=== PATIENT | male | born 1970 | race African-American/Black ===

== ENCOUNTER 2020-02-21 05:24 | Emergency (ER) | payer OTHER ==
[~2020-02-21] VITALS: Ht 182.9 cm; Wt 97.0 kg
[2020-02-21] MEDS ORDERED: IV NORMAL SALINE 1000ML BAG 1,000 ML IV ONE (05:30)
--- NOTE | 2020-02-21 05:46 | PHYS DOC ---
Past Medical History Past Medical History: No Pertinent History Additional Past Surgical Histo: R knee Smoking Status: Never Smoker Alcohol Use: None Drug Use: None General Adult EDM: Chief Complaint: SYNCOPE HPI: HPI: Patient is a 49 year old male presents via EMS with report of syncopal episode upon arrival at work this morning. Reports he has been dealing with some racist at his place of employment. Reports recently received several text messages of inappropriate content. Patient tried to let things go but texts continued. Reports they have continued to treat him without respect. Reports he has gone through the correct channels to notify HR and his management. Today he tried to go talk to these individuals but he started to feel unwell and anxious. Reports he thinks the stress took over and caused him to pass out. Denies headache or neck pain. Denies use of blood thinners. Denies chest pain. Denies nausea or vomiting. Review of Systems: Review of Systems: Constitutional: Denies fever or chills Eyes: Denies redness or eye pain HENT: Denies nasal congestion or sore throat Respiratory: Denies cough or shortness of breath Cardiovascular: Denies chest pain or palpitations GI: Denies abdominal pain, nausea, or vomiting : Denies dysuria or hematuria Musculoskeletal: Denies back pain or joint pain Integument: Denies rash or skin lesions Neurologic: Denies headache, focal weakness or sensory changes; reports syncopal episode Complete systems were reviewed and found to be within normal limits, except as documented in this note. Current Medications: Current Medications Medications (Trade) Dose Ordered Sig/Davi Start Time Stop Time Status Last Admin Dose Admin Sodium Chloride 1,000 ml @ 1,000 mls/hr 1X ONCE 02/21/20 05:30 02/21/20 06:29 Allergies: Allergies: Allergies Coded Allergies Type Severity Reaction Last Updated Verified Unable to Assess 02/21/20 No Physical Exam: PE: Constitutional: Well developed, well nourished, tearful, non-toxic appearance HENT: Normocephalic, atraumatic Eyes: PERRL, EOMI, conjunctiva normal, no discharge, no nystagmus Neck: Normal range of motion, no tenderness, supple Lungs & Thorax: No respiratory distress, equal chest rise and fall Abdomen: Soft, no tenderness Skin: Warm, dry, no erythema, no rash Extremities: No tenderness, ROM intact, no edema Neurologic: Alert and oriented X 3, normal motor function, normal sensory function, no focal deficits noted Psychologic: Affect anxious, judgment normal EKG: EKG: @0539 NSR at 75bpm, NO ST elevation, QRS 92ms, QT/QTc 370/416ms Radiology/Procedures: Radiology/Procedures: PROCEDURE: CT HEAD WO CONTRAST EXAM: CT Head without IV contrast INDICATION: Reason: syncope / Spl. Instructions: / History: TECHNIQUE: Multi-detector row CT images were obtained of the head without the use of IV contrast. All CT scans performed at this facility utilize dose optimization techniques as appropriate to the exam, including the following: Automated exposure control and adjustment of the mA and/or KV according to patient size (this includes techniques or standardized protocols for targeted exams where dose is indication/reason for exam). COMPARISON: None FINDINGS: BRAIN PARENCHYMA: No evidence of acute intraparenchymal hemorrhage or infarct. No abnormal parenchymal density or mass. VENTRICLES & EXTRA-AXIAL SPACES: Ventricles are within normal limits. Basilar cisterns are patent. No pathologic extra-axial fluid collection or mass. ORBITS: Orbital contents are unremarkable. SINUSES: Visualized paranasal sinuses and mastoid air cells are clear. OSSEOUS & SOFT TISSUES: Calvarium and skull base are intact. IMPRESSION: Normal CT of the head without contrast. Electronically signed by: Luiz Junior MD (02/21/2020 6:06 AM) [facility] [place] Course & Med Decision Making: Course & Med Decision Making Pertinent Labs and Imaging studies reviewed. (See chart for details) Patient presents with report of syncopal episode while at work. Appears likely secondary to increased stresses at work. EKG stable. Labs obtained and posted to chart. CT head without acute process. Anxiety addressed. Orthostatic VS stable. Patient stable for discharge with outpatient follow-up with PCP. Discussed findings and plan with patient and family, who acknowledge understanding and agreement. [place] Disclaimer: [place] Disclaimer: This electronic medical record was generated, in whole or in part, using a voice recognition dictation system. Departure Departure Impression: Primary Impression: Syncope Qualified Codes: R55 - Syncope and collapse Additional Impression: Anxiety Disposition: 01 HOME, SELF-CARE Condition: STABLE Patient Instructions: Anxiety and Panic Attacks, [id number], Stress Management, Syncope, [id number] Scripts Lorazepam (ATIVAN) 0.5 Mg Tablet 0.5 MG PO TID PRN for ANXIETY, #10 TAB Prov: ANGELO HASSAN DO 02/21/20 Justicifation of Admission Dx: Justifications for Admission: Justification of Admission Dx: N/A ANGELO HASSAN DO Feb 21, 2020 05:46
--- NOTE | 2020-02-21 05:47 | EKG ---
[facility] [address] [place] [address] Test Date: 2020-02-21 Test Time: 05:39:11 Pat Name: DEIRDRE SANFORD Department: Room: Gender: M Director Of Dietary: : 1970 Requested By: ANGELO HASSAN Order Number: [id number] Reading MD: Measurements Intervals [place] Rate: 75 P: 31 TX: 182 QRS: 8 QRSD: 92 T: 12 QT: 370 QTc: 416 Interpretive Statements SINUS RHYTHM NORMAL ECG RI6.02 No previous ECG available for comparison
[2020-02-21 05:52] LABS: BASO % 1 % (0-3); EOS # 0.1 x10^3/uL (0.0-0.7); EOS % 2 % (0-3); HEMATOCRIT 45.4 % (39.0-53.0); HEMOGLOBIN 15.5 g/dL (13.0-17.5); LYMPH # 1.1 x10^3/uL (1.0-4.8); LYMPH % 21 % (24-48); MEAN CORPUSCULAR HEMOGLOBIN 29 pg (25-35); MEAN CORPUSCULAR HGB CONC 34 g/dL (31-37); MEAN CORPUSCULAR VOLUME 84 fL (79-100); MONO # 0.5 x10^3/uL (0.0-1.1); MONO % 8 % (0-9); NEUT # 3.7 x10^3/uL (1.8-7.7); NEUT % 69 % (31-73); PLATELET COUNT 250 x10^3/uL (140-400); RED BLOOD COUNT 5.39 x10^6/uL (4.30-5.70); RED CELL DISTRIBUTION WIDTH 14.2 % (11.5-14.5); WHITE BLOOD COUNT 5.4 x10^3/uL (4.0-11.0)
[2020-02-21 06:02] LABS: PROTHROMBIN TIME PATIENT 12.5 SEC (11.7-14.0)
[2020-02-21 06:06] LABS: CALCIUM 9.3 mg/dL (8.5-10.1); CREATININE 1.3 mg/dL (0.7-1.3); POTASSIUM 3.5 mmol/L (3.5-5.1)
--- NOTE | 2020-02-21 06:08 | RAD ---
EXAM: CT Head without IV contrast INDICATION: Reason: syncope / Spl. Instructions: / History: TECHNIQUE: Multi-detector row CT images were obtained of the head without the use of IV contrast. All CT scans performed at this facility utilize dose optimization techniques as appropriate to the exam, including the following: Automated exposure control and adjustment of the mA and/or KV according to patient size (this includes techniques or standardized protocols for targeted exams where dose is indication/reason for exam). COMPARISON: None FINDINGS: BRAIN PARENCHYMA: No evidence of acute intraparenchymal hemorrhage or infarct. No abnormal parenchymal density or mass. VENTRICLES & EXTRA-AXIAL SPACES: Ventricles are within normal limits. Basilar cisterns are patent. No pathologic extra-axial fluid collection or mass. ORBITS: Orbital contents are unremarkable. SINUSES: Visualized paranasal sinuses and mastoid air cells are clear. OSSEOUS & SOFT TISSUES: Calvarium and skull base are intact. IMPRESSION: Normal CT of the head without contrast. Electronically signed by: Luiz Junior MD (02/21/2020 6:06 AM) [facility] [place]
[2020-02-21 06:13] LABS: ALBUMIN 4.2 g/dL (3.4-5.0); ALBUMIN/GLOBULIN RATIO 1.1 (1.0-1.7); MAGNESIUM 2.1 mg/dL (1.8-2.4); TOTAL BILIRUBIN 0.5 mg/dL (0.2-1.0); TOTAL PROTEIN 7.9 g/dL (6.4-8.2)
[2020-02-21] MEDS ORDERED: LORA0.5T96 PO (06:46)
[2020-02-21 07:21] LABS: BILIRUBIN,URINE NEGATIVE (NEG); CLARITY,URINE CLEAR; COLOR,URINE YELLOW; NITRITE,URINE NEGATIVE (NEG); PH,URINE 7.5 (<5.0-8.0); PROTEIN,URINE 30 mg/dL (NEG-TRACE); UROBILINOGEN,URINE 0.2 mg/dL (0.2 mg/dL)
[2020-02-21 07:28] LABS: AMPHETAMINE/METHAMPHETAMINE NEG (NEG); BARBITURATES NEG (NEG); BENZODIAZEPINES NEG (NEG); CANNABINOIDS NEG (NEG); COCAINE NEG (NEG); METHADONE NEG (NEG); OPIATES NEG (NEG); PHENCYCLIDINE NEG (NEG)
[2020-02-21 07:38] LABS: BACTERIA,URINE FEW /HPF (0-FEW); RBC,URINE 0 /HPF (0-2)
[2020-02-21 08:00] VITALS: BP 166/91
== END 2020-02-21 08:37 | disposition home or self-care (01) ==
LOC: EDBD 05:24 → ER 05:24
DX: R55 Syncope and collapse (principal); F41.9 Anxiety disorder, unspecified
CPT/HCPCS: 36415; 70450; 80053; 80307; 81001; 82553; 83605; 83735; 84484; 85025; 85610; 85730; 93005; 96361; 96374; 99285; G0480; J2060; J7030